=== PATIENT | female | born 1940 | race Caucasian/White ===

== ENCOUNTER 2016-10-30 14:11 | Inpatient (IN) | payer OTHER ==
[~2016-10-30] VITALS: Ht 154.9 cm; Wt 54.9 kg
[~2016-10-30 14:11] MED LIST: ALBU0.5N2 INH; ALBUAER19 INH; ALEN70TA4 PO; ASPI1TAB83 PO; CALC-20 PO; CLC100X PO; FURO-85 PO; LISI20TA3 PO; MONT1TAB3 PO; MULTCAP94; OXGN; TIOTCAP INH; VERA240C2 PO
[2016-10-30] MEDS ORDERED: VNTHFA/IN INH (14:34)
[2016-10-30] MEDS ORDERED: SPRIN/30 INH (14:34)
[2016-10-30] MEDS ORDERED: ALBINS/ INH (14:34)
[2016-10-30] MEDS ORDERED: SIMV-150 PO (14:34)
[2016-10-30] MEDS ORDERED: ALBUTEROL 0.083% NEBU SOLN 3 ML VIAL INH STA ×2 (14:39→15:41)
[2016-10-30] MEDS ORDERED: LEVAQUIN 500MG / 100ML D5W IV ONE (14:45)
[2016-10-30] MEDS ORDERED: METHYLPREDNISOLONE IV 40 MG in SYRINGE 0 ML IV SCH (14:45)
[2016-10-30 14:59] LABS: BASO % 0.1 %; BASO ABS # 0.01 K/uL (0-0.2); COMPLETE YES; HEMATOCRIT 37.8 % (37-47); IG% 0.5 %; LYMPH % 5.8 %; LYMPH ABS # 0.72 K/uL (1.2-3.4); MEAN CELL VOLUME 85.1 fL (80-100); MEAN CORPUSCULAR HEMOGLOBIN 27.7 pg (25-34); MEAN CORPUSCULAR HGB CONC 32.5 g/dl (32-36); MEAN PLATELET VOLUME 9.7 fL (7.4-10.4); MONO % 1.2 %; NEUT % 92.4 %; PLATELET COUNT 353 K/uL (130-400); RED BLOOD COUNT 4.44 M/uL (4.2-5.4); WHITE BLOOD COUNT 12.39 K/uL (4.8-10.8)
--- NOTE | 2016-10-30 15:14 | DIAGNOSTIC IMAGING REPORT ---
CHEST ONE VIEW PORTABLE CLINICAL HISTORY: Chest pain, cough and shortness of breath. COMPARISON STUDY: Chest radiograph June 18, 2016. FINDINGS: There may be underlying emphysema. No pneumothorax or pleural effusion is present. Bilateral healed rib fractures are noted. Lower lung interstitial thickening is unchanged. There is no evidence of pulmonary edema. There is no consolidation. Cardiomediastinal silhouette is stable. A lobular density along left hemidiaphragm is unchanged since earlier exams and may reflect a Bochdalek hernia. IMPRESSION: 1. No acute findings. No change in appearance of the chest. 2. Suspected emphysema. Electronically signed by: Davis Ivey M.D. 10/30/2016 3:12 PM Dictated Date/Time: 10/30/2016 3:10 PM
[2016-10-30 15:16] LABS: BLOOD UREA NITROGEN 28 mg/dl (7-18); CALCIUM 9.4 mg/dl (8.5-10.1); CARBON DIOXIDE 28 mmol/L (21-32); CHLORIDE 101 mmol/L (98-107); CREATININE 0.86 mg/dl (0.60-1.20); GLUCOSE 144 mg/dl (70-99); POTASSIUM 3.7 mmol/L (3.5-5.1); SODIUM 141 mmol/L (136-145)
[2016-10-30 15:21] LABS: CKMB/CK RATIO 2.1 (0-3.0)
[2016-10-30] MEDS ORDERED: PRD20 PO (17:29)
[2016-10-30] MEDS ORDERED: LSN40 PO (17:29)
[2016-10-30] MEDS ORDERED: VERA1CAP6 PO (17:29)
[2016-10-30] MEDS ORDERED: IBUP1CAP9 PO (17:29)
[2016-10-30] MEDS ORDERED: MULTTAB58 PO (17:29)
[2016-10-30] MEDS ORDERED: SYMIN160 INH (17:29)
[2016-10-30] MEDS ORDERED: AMX875 INH (17:29)
[2016-10-30] MEDS ORDERED: DOCU-94 PO (17:29)
[2016-10-30] MEDS ORDERED: MELO15TA10 PO (17:29)
[2016-10-30] MEDS ORDERED: LEVALBUTEROL/IPRATROPIUM NEB INH PRN (17:30)
[2016-10-30] MEDS ORDERED: DOCUSATE SODIUM 100 MG CAP PO PRN (17:30)
[2016-10-30] MEDS ORDERED: ACETAMINOPHEN 325 MG TAB PO PRN (17:30)
[2016-10-30] MEDS ORDERED: MELOXICAM 7.5 MG TAB PO PRN (17:30)
[2016-10-30] MEDS ORDERED: ONDANSETRON INJ 2 MG/ML 2 ML VIAL IV PRN (17:30)
--- NOTE | 2016-10-30 18:14 | History and Physical ---
History & Physical Date & Time of Service: Oct 30, 2016 at 17:30 Chief Complaint: Coughing,Sob Primary Care Physician: Manav Colvin M.D. History of Present Illness Source: patient, clinic records This is a 75 y/o female with PMH of COPD, asthma, on chronic oxygen 2 liters PRN , HTN, dyslipidemia, and other problems listed below who presents to the ED with shortness of breath. Patient states she became ill with a "cold" with nasal congestion and cough productive of green sputum 8 days ago. She reports associated increase in baseline shortness of breath. Typically she is only dyspneic on exertion if she ambulates quickly, but today she was SOB at rest and her daughter states she was turning rogers in color. Patient has been taking amoxicillin and prednisone rescue kit for 7 days without improvement. She is using her rescue inhaler/ neb more than usual, at least every 4 hours. She is also using her oxygen 2 liters PRN more than usual. In the ER she was hypoxic to 79% on RA and is now saturating in mid 90s on 2 liters NC. She was treated with 2 neb treatments, IV steroids, and Levaquin in ER with partial improvement. She has not been eating as well. She has ongoing foot cramps and states she had a circulation test for that yesterday. She denies fevers, chills , sinus pressure, sore throat, chest pain, N/V/D, urinary changes, calf pain, edema. She lives with her daughter who recently had bronchitis. No recent hospitalization or travel. Past Medical/Surgical History Medical Problems: (1) Asthma Status: Chronic (2) COPD (chronic obstructive pulmonary disease) Status: Chronic (3) Hypertension Status: Chronic (4) Hypoxemia requiring supplemental oxygen Status: Chronic (5) Osteoporosis Status: Chronic (6) Pulmonary nodules Status: Chronic (7) Thyroid nodule Status: Chronic Surgical Problems: (1) History of carpal tunnel surgery Status: Chronic (2) History of cataract surgery Status: Chronic (3) S/P hysterectomy Status: Chronic Family History FH: HTN (hypertension) FH: diabetes mellitus FH: heart disease Social History Smoking Status: Former Smoker (quit 10 yeras ago. prior 1.5 ppd x 40 years) Alcohol Use: occasionally (occasional glass of wine) Drug Use: none Marital Status: Housing status: lives with family (with daughter) Occupational Status: retired Allergies Coded Allergies: Doxycycline (Verified Adverse Reaction, Intermediate, NAUSEA, 06/18/16) Atorvastatin (Verified Adverse Reaction, Unknown, MYALGIA, 06/18/16) Sulfa Antibiotics (Verified Adverse Reaction, Unknown, DIZZY,NAUSEA, ) Home Medications Scheduled Alendronate Sodium (Fosamax), 70 MG PO WK Amoxicillin (Amoxicillin), 875 MG INH BID Aspirin (Aspirin), 81 MG PO HS Budesonide/Formoterol Fumarate (Symbicort 160/4.5 Inhaler), 2 PUFFS INH BID Calcium Carbonate-Vitamin D (Calcium 600 + D), 2 TAB PO DAILY Lisinopril (Lisinopril), 40 MG PO DAILY Montelukast Sodium (Singulair), 10 MG PO DAILY Multiple Vitamin (Multivitamin), 1 TAB PO DAILY Oxygen (Oxygen), 2 LITER NA PRN Prednisone (Prednisone), MG PO UD Simvastatin (Simvastatin), 10 MG PO QPM Tiotropium [place] (Spiriva Handihaler), 1 CAP INH DAILY Verapamil (Verelan Pm), 200 MG PO QAM Scheduled PRN Albuterol Hfa (Ventolin Hfa), 2 PUFFS INH QID PRN for Shortness of Breath Albuterol Sulf (Proventil 0.083% 2.5MG/3ML), 2.5 MG INH Q4H PRN for SOB/Wheezing Docusate Sodium (Colace), 100 MG PO DAILY PRN for Constipation Furosemide (Lasix), 20 MG PO DAILY PRN for edema Ibuprofen (Ibuprofen), 200 MG PO Q4 PRN for Pain Meloxicam (Mobic), 1 TAB PO DAILY PRN for Pain Miscellaneous Medications Multiple Vitamins W/ Minerals (Ocuvite Adult 50+) Review of Systems Ten point ROS performed with pertinent positives and negatives noted in HPI. Physical Exam Vital Signs Date Time Temp Pulse Resp B/P Pulse Ox O2 Delivery O2 Flow Rate FiO2 10/30/16 15:30 85 16 142/88 97 Room Air 10/30/16 15:28 88 10/30/16 14:14 36.9 103 32 164/84 79 Nasal Cannula 3.0 10/30/16 14:14 79 Nasal Cannula 3.0 General Appearance: + pertinent finding (pleasant alert 75 year old female, sitting up in bed, mildly increased work of breathing, daughter and son-in-law at bedside) Head: normocephalic, atraumatic Eyes: normal inspection, PERRL, EOMI ENT: hearing grossly normal, TMs normal, pharynx normal, + pertinent finding ( no sinus tenderness) Neck: supple, trachea midline Respiratory/Chest: + decreased breath sounds, + wheezing (moderate expiratory wheezing), + pertinent finding (mildy increased work of breathing with mild accessory muscle use. able to speak in sentences. resp rate 18. ) Cardiovascular: regular rate, rhythm, no murmur Abdomen/GI: normal bowel sounds, non tender, soft Extremities/Musculoskelatal: no calf tenderness, no pedal edema Neurologic/Psych: alert, normal mood/affect, oriented x 3, + pertinent finding (grossly nonfocal) Skin: normal color, no rash Diagnostics Laboratory Results Results Past 24 Hours Test 10/30/16 14:49 Range/Units White Blood Count 12.39 4.8-10.8 K/uL Red Blood Count 4.44 4.2-5.4 M/uL Hemoglobin 12.3 12.0-16.0 g/dL Hematocrit 37.8 37-47 % Mean Corpuscular Volume 85.1 80-100 fL Mean Corpuscular Hemoglobin 27.7 25-34 pg Mean Corpuscular Hemoglobin Concent 32.5 32-36 g/dl Platelet Count 353 130-400 K/uL Mean Platelet Volume 9.7 7.4-10.4 fL Neutrophils (%) (Auto) 92.4 % Lymphocytes (%) (Auto) 5.8 % Monocytes (%) (Auto) 1.2 % Eosinophils (%) (Auto) 0.0 % Basophils (%) (Auto) 0.1 % Neutrophils # (Auto) 11.45 1.4-6.5 K/uL Lymphocytes # (Auto) 0.72 1.2-3.4 K/uL Monocytes # (Auto) 0.15 0.11-0.59 K/uL Eosinophils # (Auto) 0.00 0-0.5 K/uL Basophils # (Auto) 0.01 0-0.2 K/uL RDW Standard Deviation 51.9 36.4-46.3 fL RDW Coefficient of Variation 16.5 11.5-14.5 % Immature Granulocyte % (Auto) 0.5 % Immature Granulocyte # (Auto) 0.06 0.00-0.02 K/uL Sodium Level 141 136-145 mmol/L Potassium Level 3.7 3.5-5.1 mmol/L Chloride Level 101 98-107 mmol/L Carbon Dioxide Level 28 21-32 mmol/L Anion Gap 12.0 3-11 mmol/L Blood Urea Nitrogen 28 7-18 mg/dl Creatinine 0.86 0.60-1.20 mg/dl Est Creatinine Clear Calc Drug Dose 66.6 ml/min Estimated GFR () 76.6 Estimated GFR (Non- 66.1 BUN/Creatinine Ratio 33.0 10-20 Random Glucose 144 70-99 mg/dl Calcium Level 9.4 8.5-10.1 mg/dl Total Creatine Kinase 119 26-192 U/L Creatine Kinase MB 2.5 0.5-3.6 ng/ml Creatine Kinase MB Ratio 2.1 0-3.0 Troponin I < 0.015 0-0.045 ng/ml Diagnostic Radiology CHEST ONE VIEW PORTABLE CLINICAL HISTORY: Chest pain, cough and shortness of breath. COMPARISON STUDY: Chest radiograph June 18, 2016. FINDINGS: There may be underlying emphysema. No pneumothorax or pleural effusion is present. Bilateral healed rib fractures are noted. Lower lung interstitial thickening is unchanged. There is no evidence of pulmonary edema. There is no consolidation. Cardiomediastinal silhouette is stable. A lobular density along left hemidiaphragm is unchanged since earlier exams and may reflect a Bochdalek hernia. IMPRESSION: 1. No acute findings. No change in appearance of the chest. 2. Suspected emphysema. EKG NSR, possible left atrial enlargement, possible old septal infarct, no significant change when compared to prior EKG as per cardiology read Impression Assessment and Plan COPD EXACERBATION with HYPOXIA Admit to telemetry Failed outpatient treatment with amoxicillin and PO prednisone x 7 days (rescue kit from veterinary x ray operator)H Hypoxic to 79% on RA in ER; now saturating 95% on 2 liters NC; only uses 2 liters PRN at home No infiltrate on CXR Treated with nebs x2, IV Solu-Medrol, and Levaquin in ER Check influenza PCR, sputum culture Continue empiric Levaquin IV Solu-Medrol 40 mg TID Xopenex-Atrovent QIDR and PRN Continue Symbicort, Spiriva, and Singulair Supplemental O2 pr protocol Follows with Rhoda ROBLEDO for pulmonology HYPERTENSION BP mildly elevated in ER Continue lisinopril and verapamil ER (dose decreased from 200 mg -> 180 mg as we do not have the 200 mg on formulary and her family is unable to bring it from home at this point PULMONARY NODULES Continue outpatient follow up DYSLIPIDEMIA Continue statin CODE STATUS Per my discussion with the patient, DNR in case of cardiac arrest. However, if she were conscious and developed worsening respiratory status she states it would be acceptable to intubate. DISPOSITION Lives with daughter Follows with Dr. Colvin for primary care Patient seen in collaboration with Dr. Estrada. Please see her addendum. I have seen, examined and discussed this patient with Margaret Torres and I agree with the above note. Patient presents with worsening SOB, productive cough and hypoxia despite taking rescue kits of prednisone and amoxicillin. Vitals reviewed. PE: General- awake; alert; NAD Eyes- EOMI; no scleral icterus Neck- no stridor; trachea midline Lungs- end expiratory wheezes/rubs; good air movement Heart- RRR; no m/r/g Abdomen- soft; NTND; nBS Back- no gross abnormalities Extremities- no c/c/e; no deformity Neuro- no focal deficits Skin- no appreciable rash or bruise Labs, imaging and EKG reviewed. COPD exacerbation: Continue methylprednisolone, levofloxacin, nebulizers. Continue home inhalers. CXR negative. Sputum cx and flu swab pending. HTN: Continue verapamil and lisinopril. VTE Prophylaxis VTE Risk Assessment Done? Y/N: Yes Risk Level: Moderate
[2016-10-30 19:45] VITALS: BP 180/100; PULSE 93; TEMP 37; O2SAT 94
--- NOTE | 2016-10-30 19:46 | EMERGENCY ROOM VISIT NOTE ---
History Report prepared by Rafael: Chacha Chen Under the Supervision of: Dr. Puneet Avendano D.O. First contact with patient: 14:33 Chief Complaint: COUGH Stated Complaint: COUGHING,SOB Nursing Triage Summary: pt c/o trouble breathing taking meds for cold and asthma sx. not helping. pt daughter reports pt turned rogers today. daughter who lives with pt recently dx with bronchitis History of Present Illness The patient is a 75 year old female who presents to the Emergency Room with complaints of a persistent cough starting 8 days ago. The cough is productive of a green sputum. She went to see a heel finisher who gave her amoxicillin and prednisone. These relieved the symptoms briefly, but the next day she was coughing again. She wears 2 L of oxygen as needed, but it is providing her no relief. She has been having trouble breathing. She denies any fever or hemoptysis. She lives with her daughter who has recently had bronchitis. She states the symptoms are similar. She has a history of asthma and COPD. She denies any history of blood clots, cancer, or heart failure. No recorded fevers above 100.4. She denies chest pain. Source of History: patient Onset: 8 days ago Position: other (global) Quality: other (productive cough) Timing: other (persistent) Associated Symptoms: + SOB, No fevers Note: Pt denies hemoptysis. Review of Systems See HPI for pertinent positives & negatives. A total of 10 systems reviewed and were otherwise negative. Past Medical & Surgical Medical Problems: (1) Asthma (2) COPD (chronic obstructive pulmonary disease) (3) COPD exacerbation (4) Hypertension (5) Hypoxemia requiring supplemental oxygen (6) Hypoxia (7) Osteoporosis (8) Pulmonary nodules (9) Thyroid nodule Surgical Problems: (1) History of carpal tunnel surgery (2) History of cataract surgery (3) S/P hysterectomy Family History FH: HTN (hypertension) FH: diabetes mellitus FH: heart disease Social History Smoking Status: Never Smoker Alcohol Use: none Drug Use: none Marital Status: Housing Status: lives alone Occupation Status: retired Current/Historical Medications Scheduled Alendronate Sodium (Fosamax), 70 MG PO WK Amoxicillin (Amoxicillin), 875 MG INH BID Aspirin (Aspirin), 81 MG PO HS Budesonide/Formoterol Fumarate (Symbicort 160/4.5 Inhaler), 2 PUFFS INH BID Calcium Carbonate-Vitamin D (Calcium 600 + D), 2 TAB PO DAILY Lisinopril (Lisinopril), 40 MG PO DAILY Montelukast Sodium (Singulair), 10 MG PO DAILY Multiple Vitamin (Multivitamin), 1 TAB PO DAILY Oxygen (Oxygen), 2 LITER NA PRN Prednisone (Prednisone), MG PO UD Simvastatin (Simvastatin), 10 MG PO QPM Tiotropium [place] (Spiriva Handihaler), 1 CAP INH DAILY Verapamil (Verelan Pm), 200 MG PO QAM Scheduled PRN Albuterol Hfa (Ventolin Hfa), 2 PUFFS INH QID PRN for Shortness of Breath Albuterol Sulf (Proventil 0.083% 2.5MG/3ML), 2.5 MG INH Q4H PRN for SOB/Wheezing Docusate Sodium (Colace), 100 MG PO DAILY PRN for Constipation Furosemide (Lasix), 20 MG PO DAILY PRN for edema Ibuprofen (Ibuprofen), 200 MG PO Q4 PRN for Pain Meloxicam (Mobic), 1 TAB PO DAILY PRN for Pain Miscellaneous Medications Multiple Vitamins W/ Minerals (Ocuvite Adult 50+) Allergies Coded Allergies: Doxycycline (Verified Adverse Reaction, Intermediate, NAUSEA, 06/18/16) Atorvastatin (Verified Adverse Reaction, Unknown, MYALGIA, 06/18/16) Sulfa Antibiotics (Verified Adverse Reaction, Unknown, DIZZY,NAUSEA, ) Physical Exam Vital Signs Date Time Temp Pulse Resp B/P Pulse Ox O2 Delivery O2 Flow Rate FiO2 10/30/16 15:30 85 16 142/88 97 Room Air 10/30/16 15:28 88 10/30/16 14:14 36.9 103 32 164/84 79 Nasal Cannula 3.0 10/30/16 14:14 79 Nasal Cannula 3.0 Physical Exam GENERAL: sitting up in bed, chronically ill-appearing, in mild distress, tachypneic. On nasal cannula. EYE EXAM: normal conjunctiva OROPHARYNX: no exudate, no erythema, lips, buccal mucosa, and tongue normal and mucous membranes are moist NECK: supple, no nuchal rigidity, no adenopathy, non-tender LUNGS: Mild diffuse wheezes bilaterally, poor air movement. HEART: no murmurs, S1 normal and S2 normal ABDOMEN: abdomen soft, non-tender, normo-active bowel sounds, no masses, no rebound or guarding. BACK: Back is symmetrical on inspection and there is no deformity, no midline tenderness, no CVA tenderness. SKIN: no rashes and no bruising UPPER EXTREMITIES: upper extremities are grossly normal. LOWER EXTREMITIES: No pitting edema. Calves are equal bilaterally. NEURO EXAM: Normal sensorium, cranial nerves II-XII grossly intact, normal speech, no gross weakness of arms, no gross weakness of legs. Medical Decision & Procedures ER Provider Diagnostic Interpretation: Xray results per the radiologist and my interpretation. CHEST ONE VIEW PORTABLE CLINICAL HISTORY: Chest pain, cough and shortness of breath. COMPARISON STUDY: Chest radiograph June 18, 2016. FINDINGS: There may be underlying emphysema. No pneumothorax or pleural effusion is present. Bilateral healed rib fractures are noted. Lower lung interstitial thickening is unchanged. There is no evidence of pulmonary edema. There is no consolidation. Cardiomediastinal silhouette is stable. A lobular density along left hemidiaphragm is unchanged since earlier exams and may reflect a Bochdalek hernia. IMPRESSION: 1. No acute findings. No change in appearance of the chest. 2. Suspected emphysema. Electronically signed by: Davis Ivey M.D. 10/30/2016 3:12 PM Dictated Date/Time: 10/30/2016 3:10 PM Laboratory Results 10/30/16 14:49 Red Blood Count 4.44, Mean Corpuscular Volume 85.1, Mean Corpuscular Hemoglobin 27.7, Mean Corpuscular Hemoglobin Concent 32.5, Mean Platelet Volume 9.7, Neutrophils (%) (Auto) 92.4, Lymphocytes (%) (Auto) 5.8, Monocytes (%) (Auto) 1.2, Eosinophils (%) (Auto) 0.0, Basophils (%) (Auto) 0.1, Neutrophils # (Auto) 11.45, Lymphocytes # (Auto) 0.72, Monocytes # (Auto) 0.15, Eosinophils # (Auto) 0.00, Basophils # (Auto) 0.01 10/30/16 14:49 Test 10/30/16 14:49 White Blood Count 12.39 K/uL (4.8-10.8) Red Blood Count 4.44 M/uL (4.2-5.4) Hemoglobin 12.3 g/dL (12.0-16.0) Hematocrit 37.8 % (37-47) Mean Corpuscular Volume 85.1 fL (80-100) Mean Corpuscular Hemoglobin 27.7 pg (25-34) Mean Corpuscular Hemoglobin Concent 32.5 g/dl (32-36) Platelet Count 353 K/uL (130-400) Mean Platelet Volume 9.7 fL (7.4-10.4) Neutrophils (%) (Auto) 92.4 % Lymphocytes (%) (Auto) 5.8 % Monocytes (%) (Auto) 1.2 % Eosinophils (%) (Auto) 0.0 % Basophils (%) (Auto) 0.1 % Neutrophils # (Auto) 11.45 K/uL (1.4-6.5) Lymphocytes # (Auto) 0.72 K/uL (1.2-3.4) Monocytes # (Auto) 0.15 K/uL (0.11-0.59) Eosinophils # (Auto) 0.00 K/uL (0-0.5) Basophils # (Auto) 0.01 K/uL (0-0.2) RDW Standard Deviation 51.9 fL (36.4-46.3) RDW Coefficient of Variation 16.5 % (11.5-14.5) Immature Granulocyte % (Auto) 0.5 % Immature Granulocyte # (Auto) 0.06 K/uL (0.00-0.02) Anion Gap 12.0 mmol/L (3-11) Est Creatinine Clear Calc Drug Dose 66.6 ml/min Estimated GFR () 76.6 Estimated GFR (Non- 66.1 BUN/Creatinine Ratio 33.0 (10-20) Calcium Level 9.4 mg/dl (8.5-10.1) Total Creatine Kinase 119 U/L (26-192) Creatine Kinase MB 2.5 ng/ml (0.5-3.6) Creatine Kinase MB Ratio 2.1 (0-3.0) Troponin I < 0.015 ng/ml (0-0.045) Laboratory results per my review. Medications Administered Medications (Trade) Dose Ordered Sig/Jax Route Start Time Stop Time Status Last Admin Dose Admin Albuterol Sulfate 2.5 mg 2.5 mg NOW STAT INH 10/30/16 14:39 10/30/16 14:41 DC 10/30/16 15:05 2.5 MG Methylprednisolone Sodium Succinate/ Syringe (Solu-Medrol IV/ Syringe) 0.64 ml @ 1.5 mls/min NOW IV 10/30/16 14:45 10/30/16 18:50 DC 10/30/16 15:10 1.5 MLS/MIN Levofloxacin (Levaquin / D5W) 500 mg NOW ONCE IV 10/30/16 14:45 10/30/16 14:46 DC 10/30/16 15:05 500 MG Albuterol Sulfate (Ventolin 0.083% 2.5MG/3ML Neb) 2.5 mg NOW STAT INH 10/30/16 15:41 10/30/16 15:42 DC 10/30/16 16:04 2.5 MG ECG Indication: SOB/dyspnea Rate (beats per minute): 83 Rhythm: sinus rhythm Findings: Q waves (Septal), no ectopy, other (normal axis) Comparison ECG Date: 18-Jun-2016 Change: no significant change ED Course ED COURSE: Vital signs were reviewed and showed hypoxia. The patients medical record was reviewed The above diagnostic studies were performed and reviewed. ED treatments and interventions as stated above. 1435: The patient was evaluated in room C2. A complete history and physical examination was performed. 1439: Albuterol Sulfate 2.5 mg INH. 1445: Levofloxacin 500 mg IV, Methylprednisolone Sodium Succinate 40 mg/Syringe 0.64 ml @ 1.5 mls/min IV. 1541: Albuterol Sulfate 2.5 mg INH. 1605: I reevaluated the patient. She is feeling a little bit better. She is still short of breath. 1618: I discussed the patient's case with VENKAT Cornelius. She will be evaluated for further management. 1642: Upon reevaluation, the patient is resting comfortably.I discussed my findings with the patient and she understands and agrees with the treatment plan. Based on the patients age, coexisting illnesses, exam and lab findings the decision to treat as an inpatient was made. The patient remained stable while under my care. The patient will be evaluated for further management. Medical Decision Differential diagnoses includes but is not limited to pneumonia, bronchitis, COPD/Asthma exacerbation, pneumothorax, pulmonary embolism, congestive heart failure, acute coronary syndrome Patient is a 75-year-old female who presents the ER for shortness of breath. Upon arrival she is hypoxic with pulse ox in the high 70s. She notes that she wears 2 L nasal cannula intermittently at home. She has been followed up with her heel finisher and has been on steroids and antibiotics with no improvement of her symptoms. She has been significantly short of breath worsening over the past 24-48 hours. She is currently on 5 L nasal cannula with pulse ox in the mid 90s. Chest x-ray was unremarkable. She is given 2 nebs along with steroids and had improvement of her symptoms. O2 was titrated down to 3 L. She is significantly short of breath with conversation initially and this improved. She was given a dose of Levaquin. With her symptoms which have been progressing worsening while on steroids and antibiotics and now requiring persistent oxygen I thought it was prudent to admit/observe her overnight. She is evaluated by internal medicine they agreed. Labs showed a mild leukocytosis which could be secondary to an infectious process versus steroids. BMP along with troponin were negative. She is admitted to internal medicine for further workup. Consults Time Called: 1611 Consulting Physician: VENKAT Cornelius Returned Call: [phone] I discussed the patient's case with her. She will be evaluated for further management. Impression Primary Impression: Bronchitis Additional Impressions: Hypoxia COPD (chronic obstructive pulmonary disease) Asthma exacerbation Scribe Attestation The scribe's documentation has been prepared under my direction and personally reviewed by me in its entirety. I confirm that the note above accurately reflects all work, treatment, procedures, and medical decision making performed by me. Departure Information Dispostion Being Evaluated By Hospitalist Manav Rice M.D. (PCP) Patient Instructions My [facility] Problem Qualifiers Additional Impressions: COPD (chronic obstructive pulmonary disease) COPD type: COPD with acute exacerbation Qualified Codes: J44.1 - Chronic obstructive pulmonary disease with (acute) exacerbation
[2016-10-30] MEDS: LEVALBUTEROL 1.25MG/0.5ML NEB INH SCH (19:52)
[2016-10-30] MEDS: IPRATROPIUM BROMIDE NEB SOLN 0.02% 2.5 ML VIAL INH SCH (19:52)
[2016-10-30 19:53] VITALS: PULSE 96; O2SAT 90
[2016-10-30 20:00] VITALS: O2SAT 94; Ht 154.9 cm; Wt 54.9 kg
[2016-10-30] MEDS: BUDESONIDE/FORMOTEROL FUMARATE 160/4.5 60 PUFFS/INHALER INH SCH (20:43)
[2016-10-30] MEDS: SIMVASTATIN 10 MG TAB PO SCH (20:44)
[2016-10-30] MEDS: MONTELUKAST SOD 10 MG TAB PO SCH (20:44)
[2016-10-30] MEDS: ASPIRIN 81 MG ECTAB PO SCH (20:44)
[2016-10-30 20:53] VITALS: BP 195/95; PULSE 109
[2016-10-30] MEDS ORDERED: LEVALBUTEROL/IPRATROPIUM NEB INH SCH (21:00)
[2016-10-30] MEDS ORDERED: VERAPAMIL HCL 180 MG TABCR PO ONE (21:00)
[2016-10-30 21:51] LABS: INFLUENZA A PCR Neg for Influ A (NEG); INFLUENZA B PCR Neg for Influ B (NEG)
[2016-10-30] MEDS: METHYLPREDNISOLONE IV 40 MG in SYRINGE 0 ML IV SCH (22:56)
[2016-10-30 23:12] VITALS: BP 173/90; PULSE 84; TEMP 37.1; O2SAT 92
[2016-10-31] VITALS (10 sets, daily range): BP systolic 152–173; BP diastolic 78–94; PULSE 72–103; TEMP 36.7–37; O2SAT 90–99
[2016-10-31] MEDS: LEVALBUTEROL 1.25MG/0.5ML NEB INH SCH ×5 (02:22→23:09)
[2016-10-31] MEDS: IPRATROPIUM BROMIDE NEB SOLN 0.02% 2.5 ML VIAL INH SCH ×5 (02:22→23:09)
[2016-10-31 07:11] LABS: HEMATOCRIT 36.7 % (37-47); MEAN CELL VOLUME 85.3 fL (80-100); MEAN CORPUSCULAR HEMOGLOBIN 27.4 pg (25-34); MEAN CORPUSCULAR HGB CONC 32.2 g/dl (32-36); MEAN PLATELET VOLUME 9.7 fL (7.4-10.4); PLATELET COUNT 337 K/uL (130-400); WHITE BLOOD COUNT 6.11 K/uL (4.8-10.8)
[2016-10-31 07:19] LABS: PARTIAL THROMBOPLASTIN RATIO 0.9; PROTHROMBIN TIME (PATIENT) 10.6 SECONDS (9.0-12.0)
[2016-10-31 07:40] LABS: BUN/CREATININE RATIO 28.8 (10-20); CALCIUM 8.9 mg/dl (8.5-10.1); CREATININE 0.68 mg/dl (0.60-1.20); POTASSIUM 3.7 mmol/L (3.5-5.1)
[2016-10-31] MEDS: BUDESONIDE/FORMOTEROL FUMARATE 160/4.5 60 PUFFS/INHALER INH SCH ×2 (08:08→20:39)
[2016-10-31] MEDS: METHYLPREDNISOLONE IV 40 MG in SYRINGE 0 ML IV SCH ×3 (08:08→23:39)
[2016-10-31] MEDS: MULTIVITAMIN TAB PO SCH (08:09)
[2016-10-31] MEDS: TIOTROPIUM BROMIDE 5 PUFF/90 MCG INH INH SCH (08:09)
[2016-10-31] MEDS: VERAPAMIL HCL 180 MG TABCR PO SCH (08:09)
[2016-10-31] MEDS: CALCIUM 600MG + VIT D 400 IU TAB PO SCH (08:09)
[2016-10-31] MEDS: LISINOPRIL 40 MG TAB PO SCH (08:09)
[2016-10-31] MEDS: ENOXAPARIN 40 MG/0.4 ML SYR SC SCH (08:36)
[2016-10-31] MEDS: LEVOFLOXACIN / D5W 500 MG in PREMIXED IN D5W 100 ML IV SCH (16:08)
--- NOTE | 2016-10-31 17:55 | Progress Note ---
Medicine Progress Note Date & Time of Visit: Oct 31, 2016 at 17:52. Subjective resting in bed, in good spirits states her breathing is somewhat improved compared to yesterday has dry cough report sore throat denies chest, palpitations, dizziness no other symptoms Objective Last 8 Hrs Date Time Temp Pulse Resp B/P Pulse Ox O2 Delivery O2 Flow Rate FiO2 10/31/16 16:15 Nasal Cannula 2.0 10/31/16 14:58 36.7 100 16 155/84 99 Room Air 10/31/16 14:37 95 18 91 Nasal Cannula 2.0 10/31/16 12:15 Nasal Cannula 2.0 10/31/16 11:48 36.9 100 16 171/82 96 Nasal Cannula 2.0 Physical Exam: General- oriented x 3, not in distress, speaks in sentences with very mild effort Head- atraumatic Eyes- EOMI, anicteric ENT- (+) oral thrush Neck- supple, no JVD, no adenopathy Lungs- scattered mild expiratory wheeze bilaterally good air entry Heart- normal rate, regular rhythm; no murmurs Abdomen- normal bowel sounds, soft, nontender Extremities- no pretibial edema, no calf tenderness; peripheral pulses intact Neuro- alert, oriented x 3;no gross deficits Skin- warm & dry Laboratory Results: Last 24 Hours Test 10/30/16 19:30 10/31/16 06:49 Influenza Type A (RT-PCR) Neg for Influ A Influenza Type B (RT-PCR) Neg for Influ B White Blood Count 6.11 K/uL Red Blood Count 4.30 M/uL Hemoglobin 11.8 g/dL Hematocrit 36.7 % Mean Corpuscular Volume 85.3 fL Mean Corpuscular Hemoglobin 27.4 pg Mean Corpuscular Hemoglobin Concent 32.2 g/dl RDW Standard Deviation 51.2 fL RDW Coefficient of Variation 16.3 % Platelet Count 337 K/uL Mean Platelet Volume 9.7 fL Prothrombin Time 10.6 SECONDS Prothromb Time International Ratio 1.0 Activated Partial Thromboplast Time 23.7 SECONDS Partial Thromboplastin Ratio 0.9 Sodium Level 141 mmol/L Potassium Level 3.7 mmol/L Chloride Level 103 mmol/L Carbon Dioxide Level 27 mmol/L Anion Gap 11.0 mmol/L Blood Urea Nitrogen 20 mg/dl Creatinine 0.68 mg/dl Est Creatinine Clear Calc Drug Dose 53.9 ml/min Estimated GFR () 99.2 Estimated GFR (Non- 85.6 BUN/Creatinine Ratio 28.8 Random Glucose 134 mg/dl Calcium Level 8.9 mg/dl Date/Time Source Procedure Growth Status 10/30/16 21:00 Sputum Expectorated Sputum Gram Stain - Final Resulted 10/30/16 21:00 Sputum Expectorated Sputum Sputum Culture - Preliminary LIGHT NORMAL PITA Present, Final Rep... 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 However, if she were conscious and developed worsening respiratory status she states it would be acceptable to intubate. DISPOSITION Lives with daughter Follows with Dr. Colvin for primary care Current Inpatient Medications: Current Inpatient Medications Medications (Trade) Dose Ordered Sig/Jax Route Start Time Stop Time Status Last Admin Dose Admin Lactated Ringer's (Lr 1000ml) 500 ml @ 15 mls/hr Q24H IV 11/02/16 06:00 11/02/16 18:00 Enoxaparin Sodium (Lovenox Inj) 40 mg DAILY@0900 SC 10/31/16 09:00 11/30/16 08:59 10/31/16 08:36 40 MG Acetaminophen (Tylenol Tab) 650 mg Q4H PRN PO 10/30/16 17:30 11/29/16 17:29 Ondansetron HCl 4 mg 4 mg Q6H PRN IV 10/30/16 17:30 11/29/16 17:29 Methylprednisolone Sodium Succinate 40 mg/Syringe 0.64 ml @ 1.5 mls/min Q8H IV 10/31/16 00:00 11/30/16 00:00 10/31/16 16:08 1.5 MLS/MIN Levofloxacin/Prmx (Levaquin / D5W/ Premixed D5W) 100 ml @ 100 mls/hr Q24H IV 10/31/16 16:00 11/06/16 15:59 10/31/16 16:08 100 MLS/HR Alendronate Sodium (Fosamax Tab) 70 mg Leroy@0600 PO 11/01/16 06:00 12/01/16 05:59 Aspirin (Ecotrin Tab) 81 mg HS PO 10/30/16 21:00 11/29/16 20:59 10/30/16 20:44 81 MG Budesonide/ Formoterol Fumarate (Symbicort 160/ 4.5 Inh) 2 puffs BID INH 10/30/16 21:00 11/29/16 20:59 10/31/16 08:08 2 PUFFS Docusate Sodium (coLACE CAP) 100 mg DAILY PRN PO 10/30/16 17:30 11/29/16 17:29 Lisinopril (Zestril Tab) 40 mg DAILY PO 10/31/16 09:00 11/30/16 08:59 10/31/16 08:09 40 MG Montelukast Sodium (Singulair Tab) 10 mg QPM PO 10/30/16 21:00 11/29/16 20:59 10/30/16 20:44 10 MG Multivitamins (Multivitamin Tab) 1 tab DAILY PO 10/31/16 09:00 11/30/16 08:59 10/31/16 08:09 1 TAB Simvastatin (Zocor Tab) 10 mg QPM PO 10/30/16 21:00 11/29/16 20:59 10/30/16 20:44 10 MG Tiotropium [place] (Spiriva Handihaler Inhaler) 30 puff DAILY INH 10/31/16 09:00 11/30/16 08:59 10/31/16 08:09 5 PUFF Calcium/Vitamin D (Caltrate Plus Tab) 2 tab DAILY PO 10/31/16 09:00 11/30/16 08:59 10/31/16 08:09 2 TAB Verapamil HCl (Calan-Sr Tab) 180 mg QAM PO 10/31/16 09:00 11/30/16 08:59 10/31/16 08:09 180 MG Ipratropium [place] (Atrovent 0.02% 0.5MG/2.5ML Neb) 0.5 mg Q6R INH 10/30/16 21:00 11/29/16 20:59 10/31/16 14:37 0.5 MG Levalbuterol (Xopenex 1.25MG/ 0.5ML Neb) 1.25 mg Q6R INH 10/30/16 21:00 11/29/16 20:59 10/31/16 14:37 1.25 MG
[2016-10-31] MEDS: NYSTATIN SUSP 500,000 U/5 ML UDC PO SCH ×2 (18:23→20:40)
[2016-10-31] MEDS: MONTELUKAST SOD 10 MG TAB PO SCH (20:41)
[2016-10-31] MEDS: SIMVASTATIN 10 MG TAB PO SCH (20:41)
[2016-10-31] MEDS: ASPIRIN 81 MG ECTAB PO SCH (20:41)
[2016-11-01] VITALS (12 sets, daily range): BP systolic 147–184; BP diastolic 69–97; PULSE 83–122; TEMP 36.6–37; O2SAT 89–97
[2016-11-01] MEDS: LEVALBUTEROL 1.25MG/0.5ML NEB INH SCH ×6 (03:18→23:13)
[2016-11-01] MEDS: IPRATROPIUM BROMIDE NEB SOLN 0.02% 2.5 ML VIAL INH SCH ×6 (03:18→23:13)
[2016-11-01] MEDS ORDERED: ALENDRONATE SODIUM 70 MG TAB PO SCH (06:00)
[2016-11-01] MEDS: MULTIVITAMIN TAB PO SCH (07:25)
[2016-11-01] MEDS: ENOXAPARIN 40 MG/0.4 ML SYR SC SCH (07:25)
[2016-11-01] MEDS: NYSTATIN SUSP 500,000 U/5 ML UDC PO SCH ×4 (07:25→21:09)
[2016-11-01] MEDS: LISINOPRIL 40 MG TAB PO SCH (07:26)
[2016-11-01] MEDS: TIOTROPIUM BROMIDE 5 PUFF/90 MCG INH INH SCH (07:26)
[2016-11-01] MEDS: VERAPAMIL HCL 180 MG TABCR PO SCH (07:26)
[2016-11-01] MEDS: METHYLPREDNISOLONE IV 40 MG in SYRINGE 0 ML IV SCH ×2 (07:26→15:39)
[2016-11-01] MEDS: CALCIUM 600MG + VIT D 400 IU TAB PO SCH (07:27)
[2016-11-01] MEDS: BUDESONIDE/FORMOTEROL FUMARATE 160/4.5 60 PUFFS/INHALER INH SCH ×2 (07:27→21:10)
--- NOTE | 2016-11-01 11:50 | Progress Note ---
Medicine Progress Note Date & Time of Visit: Nov 01, 2016 at 11:47. Subjective patient seen resting comfortably states she feels improved compared to yesterday less cough, still has mild wheeze no chest pain sore throat improving denies other symptoms Objective Last 8 Hrs Date Time Temp Pulse Resp B/P Pulse Ox O2 Delivery O2 Flow Rate FiO2 11/01/16 11:44 36.9 93 18 147/69 91 11/01/16 11:05 90 18 94 Nasal Cannula 2.0 11/01/16 08:15 Nasal Cannula 2.0 11/01/16 07:15 36.6 99 18 158/86 92 2.0 11/01/16 07:04 83 18 94 Nasal Cannula 2.0 11/01/16 04:00 Nasal Cannula 2.0 Physical Exam: General- oriented x 3, not in distress, speaks in sentences with very mild effort Head- atraumatic Eyes- anicteric ENT- (+) oral thrush Neck- no JVD Lungs- scattered mild expiratory wheeze bilaterally - improved good air entry Heart- normal rate, regular rhythm; no murmurs Abdomen- normal bowel sounds, soft, nontender Extremities- no pretibial edema, no calf tenderness; peripheral pulses intact Neuro- alert, oriented x 3;no gross deficits Skin- warm & dry Assessment & Plan ACUTE HYPOXIC RESPIRATORY FAILURE SECONDARY TO COPD EXACERBATION ACUTE BRONCHITIS Failed outpatient treatment with amoxicillin and PO prednisone x 7 days (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 However, if she were conscious and developed worsening respiratory status she states it would be acceptable to intubate. DISPOSITION Lives with daughter Follows with Dr. Colvin for primary care anticipate discharge home when medically stable Current Inpatient Medications: Current Inpatient Medications Medications (Trade) Dose Ordered Sig/Jax Route Start Time Stop Time Status Last Admin Dose Admin Lactated Ringer's (Lr 1000ml) 500 ml @ 15 mls/hr Q24H IV 11/02/16 06:00 11/02/16 18:00 Enoxaparin Sodium (Lovenox Inj) 40 mg DAILY@0900 SC 10/31/16 09:00 11/30/16 08:59 11/01/16 07:25 40 MG Acetaminophen (Tylenol Tab) 650 mg Q4H PRN PO 10/30/16 17:30 11/29/16 17:29 Ondansetron HCl 4 mg 4 mg Q6H PRN IV 10/30/16 17:30 11/29/16 17:29 Methylprednisolone Sodium Succinate 40 mg/Syringe 0.64 ml @ 1.5 mls/min Q8H IV 10/31/16 00:00 11/30/16 00:00 11/01/16 07:26 1.5 MLS/MIN Levofloxacin/Prmx (Levaquin / D5W/ Premixed D5W) 100 ml @ 100 mls/hr Q24H IV 10/31/16 16:00 11/06/16 15:59 10/31/16 16:08 100 MLS/HR Alendronate Sodium (Fosamax Tab) 70 mg Leroy@0600 PO 11/01/16 06:00 12/01/16 05:59 11/01/16 07:26 70 MG Aspirin (Ecotrin Tab) 81 mg HS PO 10/30/16 21:00 11/29/16 20:59 10/31/16 20:41 81 MG Budesonide/ Formoterol Fumarate (Symbicort 160/ 4.5 Inh) 2 puffs BID INH 10/30/16 21:00 11/29/16 20:59 11/01/16 07:27 2 PUFFS Docusate Sodium (coLACE CAP) 100 mg DAILY PRN PO 10/30/16 17:30 11/29/16 17:29 Lisinopril (Zestril Tab) 40 mg DAILY PO 10/31/16 09:00 11/30/16 08:59 11/01/16 07:26 40 MG Montelukast Sodium (Singulair Tab) 10 mg QPM PO 10/30/16 21:00 11/29/16 20:59 10/31/16 20:41 10 MG Multivitamins (Multivitamin Tab) 1 tab DAILY PO 10/31/16 09:00 11/30/16 08:59 11/01/16 07:25 1 TAB Simvastatin (Zocor Tab) 10 mg QPM PO 10/30/16 21:00 11/29/16 20:59 10/31/16 20:41 10 MG Tiotropium [place] (Spiriva Handihaler Inhaler) 30 puff DAILY INH 10/31/16 09:00 11/30/16 08:59 11/01/16 07:26 5 PUFF Calcium/Vitamin D (Caltrate Plus Tab) 2 tab DAILY PO 10/31/16 09:00 11/30/16 08:59 11/01/16 07:27 2 TAB Verapamil HCl (Calan-Sr Tab) 180 mg QAM PO 10/31/16 09:00 11/30/16 08:59 11/01/16 07:26 180 MG Ipratropium [place] (Atrovent 0.02% 0.5MG/2.5ML Neb) 0.5 mg Q4R INH 10/31/16 20:00 11/30/16 19:59 11/01/16 11:05 0.5 MG Levalbuterol (Xopenex 1.25MG/ 0.5ML Neb) 1.25 mg Q4R INH 10/31/16 20:00 11/30/16 19:59 11/01/16 11:05 1.25 MG Nystatin (Mycostatin Susp) 4 ml QID PO 10/31/16 18:00 11/07/16 17:59 11/01/16 07:25 4 ML
[2016-11-01] MEDS: LEVOFLOXACIN / D5W 500 MG in PREMIXED IN D5W 100 ML IV SCH (15:39)
[2016-11-01] MEDS: SIMVASTATIN 10 MG TAB PO SCH (21:09)
[2016-11-01] MEDS: ASPIRIN 81 MG ECTAB PO SCH (21:09)
[2016-11-01] MEDS: MONTELUKAST SOD 10 MG TAB PO SCH (21:09)
[2016-11-02] VITALS (14 sets, daily range): BP systolic 135–177; BP diastolic 71–89; PULSE 71–103; TEMP 36.7–36.8; O2SAT 90–97
[2016-11-02] MEDS: METHYLPREDNISOLONE IV 40 MG in SYRINGE 0 ML IV SCH ×3 (00:03→15:59)
[2016-11-02] MEDS: IPRATROPIUM BROMIDE NEB SOLN 0.02% 2.5 ML VIAL INH SCH ×5 (03:14→20:25)
[2016-11-02] MEDS: LEVALBUTEROL 1.25MG/0.5ML NEB INH SCH ×5 (03:15→20:25)
[2016-11-02] MEDS ORDERED: PROPARACAINE 0.5% OP SOLN PER DROP CHARGE OPR SCH (06:00)
[2016-11-02] MEDS ORDERED: LACTATED RINGER'S 1000ML 500 ML IV SCH (06:00)
[2016-11-02] MEDS ORDERED: PHENYLEPHRINE HCL 2.5% OP SOLN PER DROP CHARGE OPR SCH (06:01)
[2016-11-02] MEDS ORDERED: TROPICAMIDE 1% OP SOLN PER DROP CHARGE OPR SCH (06:02)
[2016-11-02 06:55] LABS: HEMATOCRIT 36.7 % (37-47); MEAN CORPUSCULAR HEMOGLOBIN 27.5 pg (25-34); MEAN CORPUSCULAR HGB CONC 31.6 g/dl (32-36); MEAN PLATELET VOLUME 10.4 fL (7.4-10.4); PLATELET COUNT 369 K/uL (130-400); RED BLOOD COUNT 4.22 M/uL (4.2-5.4); WHITE BLOOD COUNT 16.29 K/uL (4.8-10.8)
[2016-11-02] MEDS: TIOTROPIUM BROMIDE 5 PUFF/90 MCG INH INH SCH (07:48)
[2016-11-02] MEDS: BUDESONIDE/FORMOTEROL FUMARATE 160/4.5 60 PUFFS/INHALER INH SCH ×2 (07:48→20:33)
[2016-11-02] MEDS: LISINOPRIL 40 MG TAB PO SCH (07:49)
[2016-11-02] MEDS: MULTIVITAMIN TAB PO SCH (07:49)
[2016-11-02] MEDS: VERAPAMIL HCL 180 MG TABCR PO SCH (07:49)
[2016-11-02] MEDS: CALCIUM 600MG + VIT D 400 IU TAB PO SCH (07:49)
[2016-11-02] MEDS: ENOXAPARIN 40 MG/0.4 ML SYR SC SCH (07:49)
[2016-11-02] MEDS: NYSTATIN SUSP 500,000 U/5 ML UDC PO SCH ×4 (07:49→20:33)
[2016-11-02] MEDS: LEVOFLOXACIN / D5W 500 MG in PREMIXED IN D5W 100 ML IV SCH (15:59)
--- NOTE | 2016-11-02 18:10 | Progress Note ---
Medicine Progress Note Date & Time of Visit: Nov 02, 2016 at 18:09. Subjective patient seen sitting up in bed, comfortable states her breathing continues to improved less cough sore throat much better denies chest pain no other symptoms Objective Last 8 Hrs Date Time Temp Pulse Resp B/P Pulse Ox O2 Delivery O2 Flow Rate FiO2 11/02/16 16:00 95 Nasal Cannula 2.0 11/02/16 15:31 36.7 74 16 177/71 95 Nasal Cannula 2.0 11/02/16 15:24 90 18 96 Nasal Cannula 2.0 11/02/16 12:11 36.7 88 18 135/73 95 Nasal Cannula 2.0 11/02/16 12:00 Nasal Cannula 2.0 11/02/16 11:22 87 18 97 Nasal Cannula 2.0 Physical Exam: General- oriented x 3, not in distress, speaks in sentences with very mild effort, mild accessory muscle use Eyes- anicteric ENT- (+) oral thrush- improved Neck- no JVD Lungs-faint wheeze bilaterally good air entry Heart- normal rate, regular rhythm; no murmurs Abdomen- normal bowel sounds, soft, nontender Extremities- no pretibial edema, no calf tenderness Neuro- alert, oriented x 3;no gross deficits Skin- warm & dry Laboratory Results: Last 24 Hours Test 11/02/16 06:25 White Blood Count 16.29 K/uL Red Blood Count 4.22 M/uL Hemoglobin 11.6 g/dL Hematocrit 36.7 % Mean Corpuscular Volume 87.0 fL Mean Corpuscular Hemoglobin 27.5 pg Mean Corpuscular Hemoglobin Concent 31.6 g/dl RDW Standard Deviation 52.6 fL RDW Coefficient of Variation 16.4 % Platelet Count 369 K/uL Mean Platelet Volume 10.4 fL Assessment & Plan ACUTE HYPOXIC RESPIRATORY FAILURE SECONDARY TO COPD EXACERBATION ACUTE BRONCHITIS Failed outpatient treatment with amoxicillin and PO prednisone x 7 days (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 However, if she were conscious and developed worsening respiratory status she states it would be acceptable to intubate. DISPOSITION Lives with daughter Follows with Dr. Colvin for primary care anticipate discharge home when medically stable Current Inpatient Medications: Current Inpatient Medications Medications (Trade) Dose Ordered Sig/Jax Route Start Time Stop Time Status Last Admin Dose Admin Enoxaparin Sodium (Lovenox Inj) 40 mg DAILY@0900 SC 10/31/16 09:00 11/30/16 08:59 11/02/16 07:49 40 MG Acetaminophen (Tylenol Tab) 650 mg Q4H PRN PO 10/30/16 17:30 11/29/16 17:29 Ondansetron HCl 4 mg 4 mg Q6H PRN IV 10/30/16 17:30 11/29/16 17:29 Methylprednisolone Sodium Succinate 40 mg/Syringe 0.64 ml @ 1.5 mls/min Q8H IV 10/31/16 00:00 11/30/16 00:00 11/02/16 15:59 1.5 MLS/MIN Levofloxacin/Prmx (Levaquin / D5W/ Premixed D5W) 100 ml @ 100 mls/hr Q24H IV 10/31/16 16:00 11/06/16 15:59 11/02/16 15:59 100 MLS/HR Alendronate Sodium (Fosamax Tab) 70 mg Leroy@0600 PO 11/01/16 06:00 12/01/16 05:59 11/01/16 07:26 70 MG Aspirin (Ecotrin Tab) 81 mg HS PO 10/30/16 21:00 11/29/16 20:59 11/01/16 21:09 81 MG Budesonide/ Formoterol Fumarate (Symbicort 160/ 4.5 Inh) 2 puffs BID INH 10/30/16 21:00 11/29/16 20:59 11/02/16 07:48 2 PUFFS Docusate Sodium (coLACE CAP) 100 mg DAILY PRN PO 10/30/16 17:30 11/29/16 17:29 Lisinopril (Zestril Tab) 40 mg DAILY PO 10/31/16 09:00 11/30/16 08:59 11/02/16 07:49 40 MG Montelukast Sodium (Singulair Tab) 10 mg QPM PO 10/30/16 21:00 11/29/16 20:59 11/01/16 21:09 10 MG Multivitamins (Multivitamin Tab) 1 tab DAILY PO 10/31/16 09:00 11/30/16 08:59 11/02/16 07:49 1 TAB Simvastatin (Zocor Tab) 10 mg QPM PO 10/30/16 21:00 11/29/16 20:59 11/01/16 21:09 10 MG Tiotropium [place] (Spiriva Handihaler Inhaler) 30 puff DAILY INH 10/31/16 09:00 11/30/16 08:59 11/02/16 07:48 5 PUFF Calcium/Vitamin D (Caltrate Plus Tab) 2 tab DAILY PO 10/31/16 09:00 11/30/16 08:59 11/02/16 07:49 2 TAB Verapamil HCl (Calan-Sr Tab) 180 mg QAM PO 10/31/16 09:00 11/30/16 08:59 11/02/16 07:49 180 MG Ipratropium [place] (Atrovent 0.02% 0.5MG/2.5ML Neb) 0.5 mg Q4R INH 10/31/16 20:00 11/30/16 19:59 11/02/16 15:24 0.5 MG Levalbuterol (Xopenex 1.25MG/ 0.5ML Neb) 1.25 mg Q4R INH 10/31/16 20:00 11/30/16 19:59 11/02/16 15:24 1.25 MG Nystatin (Mycostatin Susp) 4 ml QID PO 10/31/16 18:00 11/07/16 17:59 11/02/16 15:59 4 ML
[2016-11-02] MEDS: SIMVASTATIN 10 MG TAB PO SCH (20:33)
[2016-11-02] MEDS: ASPIRIN 81 MG ECTAB PO SCH (20:33)
[2016-11-02] MEDS: MONTELUKAST SOD 10 MG TAB PO SCH (20:33)
[2016-11-03] VITALS (10 sets, daily range): BP systolic 131–192; BP diastolic 77–94; PULSE 84–113; TEMP 36.7–37.1; O2SAT 90–98
[2016-11-03] MEDS: VERAPAMIL HCL 180 MG TABCR PO SCH (00:59)
[2016-11-03] MEDS: LEVALBUTEROL 1.25MG/0.5ML NEB INH SCH ×3 (02:15→14:22)
[2016-11-03] MEDS: IPRATROPIUM BROMIDE NEB SOLN 0.02% 2.5 ML VIAL INH SCH ×3 (02:15→14:22)
[2016-11-03] MEDS ORDERED: METHYLPREDNISOLONE IV 40 MG in SYRINGE 0 ML IV SCH (04:00)
[2016-11-03] MEDS: BUDESONIDE/FORMOTEROL FUMARATE 160/4.5 60 PUFFS/INHALER INH SCH (08:02)
[2016-11-03] MEDS: ENOXAPARIN 40 MG/0.4 ML SYR SC SCH (08:03)
[2016-11-03] MEDS: TIOTROPIUM BROMIDE 5 PUFF/90 MCG INH INH SCH (08:03)
[2016-11-03] MEDS: CALCIUM 600MG + VIT D 400 IU TAB PO SCH (08:03)
[2016-11-03] MEDS: NYSTATIN SUSP 500,000 U/5 ML UDC PO SCH ×2 (08:03→12:19)
[2016-11-03] MEDS: MULTIVITAMIN TAB PO SCH (08:03)
[2016-11-03] MEDS: LISINOPRIL 40 MG TAB PO SCH (08:03)
--- NOTE | 2016-11-03 12:40 | Progress Note ---
Medicine Progress Note Date & Time of Visit: Nov 03, 2016 at 12:32. Subjective patient states she feels better overall breathing has improved, back to baseline cough continues to improved no chest pain denies other symptoms states she is ready and would like to be discharged today Objective Last 8 Hrs Date Time Temp Pulse Resp B/P Pulse Ox O2 Delivery O2 Flow Rate FiO2 11/03/16 11:37 37.1 90 18 152/85 98 Nasal Cannula 2.0 11/03/16 07:45 Nasal Cannula 2.0 11/03/16 07:30 36.9 84 20 131/77 94 Nasal Cannula 2.0 11/03/16 07:14 92 18 96 Nasal Cannula 2.0 Physical Exam: General- oriented x 3, not in distress, speaks in sentences with no effort, no acc muscle use ENT- (+) oral thrush- improved Neck- no JVD Lungs- very faint wheeze bilaterally ,good air entry Heart- normal rate, regular rhythm; no murmurs Abdomen- normal bowel sounds, soft, nontender Extremities- no pretibial edema, no calf tenderness Neuro- alert, oriented x 3;no gross deficits Skin- warm & dry Assessment & Plan ACUTE HYPOXIC RESPIRATORY FAILURE SECONDARY TO COPD EXACERBATION ACUTE BRONCHITIS Failed outpatient treatment with amoxicillin and PO prednisone x 7 days (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 kit from leak detector)H Hypoxic to 79% on RA in ER; now saturating 95% on 2 liters NC; only uses 2 liters PRN at home - cxr : no pneumonia negative for flu - improved gradually Nebs q4h transitioned to q6h given Solumedrol IV, tapered down received Levaquin 500mg po daily x 4 days Nystatin given for oral thrush, improved Continued Symbicort, Spiriva, and Singulair - on 2 liters NC - discharge plan: Levaquin x 3 more days Prednisone tapering course Albuterol Q6h and q4h PRN continue 2 liters o2 by NC for now until PCP follow up - ff up with PCP in 3-5 days HYPERTENSION Continue lisinopril and verapamil ER PRN Clonidine PULMONARY NODULES Continue outpatient follow up - CXR: FINDINGS: There may be underlying emphysema. No pneumothorax or pleural effusion is present. Bilateral healed rib fractures are noted. Lower lung interstitial thickening is unchanged. There is no evidence of pulmonary edema. There is no consolidation. Cardiomediastinal silhouette is stable. A lobular density along left hemidiaphragm is unchanged since earlier exams and may reflect a Bochdalek hernia. IMPRESSION: 1. No acute findings. No change in appearance of the chest. 2. Suspected emphysema. DYSLIPIDEMIA Continue statin DISPOSITION Lives with daughter d/c home today ff up with PCP 3-5 days Current Inpatient Medications: Current Inpatient Medications Medications (Trade) Dose Ordered Sig/Jax Route Start Time Stop Time Status Last Admin Dose Admin Enoxaparin Sodium (Lovenox Inj) 40 mg DAILY@0900 SC 10/31/16 09:00 11/30/16 08:59 11/03/16 08:03 40 MG Acetaminophen (Tylenol Tab) 650 mg Q4H PRN PO 10/30/16 17:30 11/29/16 17:29 Ondansetron HCl 4 mg 4 mg Q6H PRN IV 10/30/16 17:30 11/29/16 17:29 Levofloxacin/Prmx (Levaquin / D5W/ Premixed D5W) 100 ml @ 100 mls/hr Q24H IV 10/31/16 16:00 11/06/16 15:59 11/02/16 15:59 100 MLS/HR Alendronate Sodium (Fosamax Tab) 70 mg Leroy@0600 PO 11/01/16 06:00 12/01/16 05:59 11/01/16 07:26 70 MG Aspirin (Ecotrin Tab) 81 mg HS PO 10/30/16 21:00 11/29/16 20:59 11/02/16 20:33 81 MG Budesonide/ Formoterol Fumarate (Symbicort 160/ 4.5 Inh) 2 puffs BID INH 10/30/16 21:00 11/29/16 20:59 11/03/16 08:02 2 PUFFS Docusate Sodium (coLACE CAP) 100 mg DAILY PRN PO 10/30/16 17:30 11/29/16 17:29 Lisinopril (Zestril Tab) 40 mg DAILY PO 10/31/16 09:00 11/30/16 08:59 11/03/16 08:03 40 MG Montelukast Sodium (Singulair Tab) 10 mg QPM PO 10/30/16 21:00 11/29/16 20:59 11/02/16 20:33 10 MG Multivitamins (Multivitamin Tab) 1 tab DAILY PO 10/31/16 09:00 11/30/16 08:59 11/03/16 08:03 1 TAB Simvastatin (Zocor Tab) 10 mg QPM PO 10/30/16 21:00 11/29/16 20:59 11/02/16 20:33 10 MG Tiotropium [place] (Spiriva Handihaler Inhaler) 30 puff DAILY INH 10/31/16 09:00 11/30/16 08:59 11/03/16 08:03 5 PUFF Calcium/Vitamin D (Caltrate Plus Tab) 2 tab DAILY PO 10/31/16 09:00 11/30/16 08:59 11/03/16 08:03 2 TAB Verapamil HCl (Calan-Sr Tab) 180 mg QAM PO 10/31/16 09:00 11/30/16 08:59 11/03/16 00:59 180 MG Nystatin 4 ml 4 ml QID PO 10/31/16 18:00 11/07/16 17:59 11/03/16 12:19 4 ML Methylprednisolone Sodium Succinate/ Syringe (Solu-Medrol IV/ Syringe) 0.64 ml @ 1.5 mls/min Q12H IV 11/03/16 04:00 12/03/16 03:59 11/03/16 04:14 1.5 MLS/MIN Ipratropium [place] (Atrovent 0.02% 0.5MG/2.5ML Neb) 0.5 mg Q6R INH 11/02/16 21:00 12/02/16 20:59 11/03/16 07:14 0.5 MG Levalbuterol (Xopenex 1.25MG/ 0.5ML Neb) 1.25 mg Q6R INH 11/02/16 21:00 12/02/16 20:59 11/03/16 07:14 1.25 MG
[2016-11-03] MEDS ORDERED: ALBINS/ INH (12:47)
[2016-11-03] MEDS ORDERED: LEVO1TAB34 PO (12:47)
[2016-11-03] MEDS ORDERED: PRED10TA PO (12:47)
[2016-11-03] MEDS ORDERED: NYSS5 PO (12:47)
[2016-11-03] MEDS ORDERED: OXGN (12:47)
--- NOTE | 2016-11-03 12:53 | Discharge Instructions ---
Discharge Instructions Date of Service Nov 03, 2016. Admission Reason for Admission: Copd Exacerbation, Hypoxia Discharge Discharge Diagnosis / Problem: COPD EXACERBATION, ACUTE BRONCHITIS Discharge Goals Goal(s): Diagnostic testing, Therapeutic intervention Activity Recommendations Activity Limitations: as noted below (NO HEAVY EXERTION UNTIL RE-EVALUATED BY PRIMARY CARE PHYSICIAN) . Instructions / Follow-Up Instructions / Follow-Up PLEASE REVIEW YOUR NEW MEDICATION LIST AND FOLLOW INSTRUCTIONS CAREFULLY. CALL PRIMARY CARE PHYSICIAN OR RETURN TO ER IMMEDIATELY IF WITH WORSENING OF SYMPTOMS. FOLLOW UP WITH DR. CASTELLANOS ON Wednesday11/06/16 AT 2:10 PM. Current Hospital Diet Patient's current hospital diet: AHA Diet (Heart Healthy) Discharge Diet Recommended Diet: AHA Diet (Heart Healthy) Pending Studies Studies pending at discharge: no Medical Emergencies . Who to Call and When: Medical Emergencies: If at any time you feel your situation is an emergency, please call 911 immediately. . Non-Emergent Contact Non-Emergency issues call your: Primary Care Provider Call Non-Emergent contact if: you have a fever, you have any medication questions SYMPTOMS ARE NOT IMPROVING, OR WORSENING . . "Provider Documentation" section prepared by Will Dawn. VTE Core Measure Inpt VTE Proph given/why not?: Enoxaparin (Lovenox)SQ
--- NOTE | 2016-11-03 13:00 | Discharge Summary ---
Discharge Summary Date of Service Nov 03, 2016. Discharge Summary Admission Date: Oct 30, 2016 at 17:19 Discharge Date: Nov 03, 2016 Discharge Disposition: Home Principal Diagnosis: ACUTE HYPOXIC RESPIRATORY FAILURE SECONDARY TO COPD EXACERBATION ACUTE BRONCHITIS Secondary Diagnoses/Problems: PLEASE REFER TO HOSPITAL COURSE BELOW. Pending Studies/Follow-Up: PLEASE REFER TO HOSPITAL COURSE BELOW. Medication Reconciliation New Medications: Levofloxacin (Levaquin) 500 Mg Tab 1 TAB PO DAILY for 3 Days, #3 TAB 0 Refills Prednisone Tab (Prednisone) 10 Mg Tab 10 MG PO UD, #21 TAB take 4 tabs po daily x 2 days, then take 3 tabs po daily x 2 days, then take 2 tabs po daily x 2 days, then take 1 tab po daily x 2 days, then take 1/2 tab po daily x 2 days, then STOP Nystatin (Nystatin) 5 Ml Susp 4 ML PO QID for 3 Days, #48 ML 0 Refills Changed Medications: Albuterol Sulf (Proventil 0.083% 2.5MG/3ML) 2.5 Mg/3 Ml Nebu 2.5 MG INH Q6H for 7 Days, EA (Changed from: Q4H; Removed Reason) may use q4h as needed for shortness of breath or wheezing Oxygen (Oxygen) Gas 2 LITER NA continuous for 7 Days (Changed from: PRN) Continued Medications: Albuterol Hfa (Ventolin Hfa) 200 Puffs/70746 Mcg Aers 2 PUFFS INH QID PRN for Shortness of Breath Alendronate Sodium (Fosamax) 70 Mg Tab 70 MG PO WK, TAB TAKE ON SUNDAYS Aspirin (Aspirin) 81 Mg Tab 81 MG PO HS Budesonide/Formoterol Fumarate (Symbicort 160/4.5 Inhaler) 120 Puffs/ Aero 2 PUFFS INH BID, #10.6 GM 3 Refills Calcium Carbonate-Vitamin D (Calcium 600 + D) 1 Tab Tab 2 TAB PO DAILY Docusate Sodium (Colace) 100 Mg Cap 100 MG PO DAILY PRN for Constipation for 15 Days, #15 CAP Furosemide (Lasix) 20 Mg Tab 20 MG PO DAILY PRN for edema, TAB Ibuprofen (Ibuprofen) 200 Mg Cap 200 MG PO Q4 PRN for Pain Lisinopril (Lisinopril) 40 Mg Tab 40 MG PO DAILY Meloxicam (Mobic) 15 Mg Tab 1 TAB PO DAILY PRN for Pain for 30 Days, #30 TAB 1 Refill Montelukast Sodium (Singulair) 10 Mg Tab 10 MG PO DAILY, TAB Multiple Vitamin (Multivitamin) 1 Tab Tab 1 TAB PO DAILY, TAB Multiple Vitamins W/ Minerals (Ocuvite Adult 50+) 1 Cap Cap Simvastatin (Simvastatin) 10 Mg Tab 10 MG PO QPM, #30 Tiotropium Carson (Spiriva Handihaler) 30 Puff/540 Mcg Aerp 1 CAP INH DAILY, INHALER Verapamil (Verelan Pm) 200 Mg Ercap 200 MG PO QAM, CAP Discontinued Medications: Amoxicillin (Amoxicillin) 875 Mg Tab 875 MG INH BID Prednisone (Prednisone) 20 Mg Tab MG PO UD 20 mg tabs. Take 2 tabs (40 mg) by mouth daily for 5 days, then 1 tab (20 mg) by mouth daily for 5 days. Take with food. As needed rescue kit. Admission Information HPI (per Admitting provider): This is a 75 y/o female with PMH of COPD, asthma, on chronic oxygen 2 liters PRN , HTN, dyslipidemia, and other problems listed below who presents to the ED with shortness of breath. Patient states she became ill with a "cold" with nasal congestion and cough productive of green sputum 8 days ago. She reports associated increase in baseline shortness of breath. Typically she is only dyspneic on exertion if she ambulates quickly, but today she was SOB at rest and her daughter states she was turning rogers in color. Patient has been taking amoxicillin and prednisone rescue kit for 7 days without improvement. She is using her rescue inhaler/ neb more than usual, at least every 4 hours. She is also using her oxygen 2 liters PRN more than usual. In the ER she was hypoxic to 79% on RA and is now saturating in mid 90s on 2 liters NC. She was treated with 2 neb treatments, IV steroids, and Levaquin in ER with partial improvement. She has not been eating as well. She has ongoing foot cramps and states she had a circulation test for that yesterday. She denies fevers, chills , sinus pressure, sore throat, chest pain, N/V/D, urinary changes, calf pain, edema. She lives with her daughter who recently had bronchitis. No recent hospitalization or travel. Physical Exam (per Admitting): General Appearance: + pertinent finding (pleasant alert 75 year old female, sitting up in bed, mildly increased work of breathing, daughter and son-in-law at bedside) Head: normocephalic, atraumatic Eyes: normal inspection, PERRL, EOMI ENT: hearing grossly normal, TMs normal, pharynx normal, + pertinent finding (no sinus tenderness) Neck: supple, trachea midline Respiratory/Chest: + decreased breath sounds, + wheezing (moderate expiratory wheezing), + pertinent finding (mildy increased work of breathing with mild accessory muscle use. able to speak in sentences. resp rate 18. 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 Hypoxic to 79% on RA in ER; now saturating 95% on 2 liters NC; only uses 2 liters PRN at home - cxr : no pneumonia negative for flu - improved gradually Nebs q4h transitioned to q6h given Solumedrol IV, tapered down received Levaquin 500mg po daily x 4 days Nystatin given for oral thrush, improved Continued Symbicort, Spiriva, and Singulair - on 2 liters NC - discharge plan: Levaquin x 3 more days Prednisone tapering course Albuterol Q6h and q4h PRN continue 2 liters o2 by NC for now until PCP follow up - ff up with PCP in 3-5 days HYPERTENSION Continue lisinopril and verapamil ER PRN Clonidine PULMONARY NODULES Continue outpatient follow up - CXR: FINDINGS: There may be underlying emphysema. No pneumothorax or pleural effusion is present. Bilateral healed rib fractures are noted. Lower lung interstitial thickening is unchanged. There is no evidence of pulmonary edema. There is no consolidation. Cardiomediastinal silhouette is stable. A lobular density along left hemidiaphragm is unchanged since earlier exams and may reflect a Bochdalek hernia. IMPRESSION: 1. No acute findings. No change in appearance of the chest. 2. Suspected emphysema. DYSLIPIDEMIA Continue statin DISPOSITION d/c home ff up with PCP 3-5 days Total time spent on discharge = 35 MINUTES This includes examination of the patient, discharge planning, medication reconciliation, and communication with other providers. Discharge Instructions Discharge Instructions Date of Service Nov 03, 2016. Admission Reason for Admission: Copd Exacerbation, Hypoxia Discharge Discharge Diagnosis / Problem: COPD EXACERBATION, ACUTE BRONCHITIS Discharge Goals Goal(s): Diagnostic testing, Therapeutic intervention Activity Recommendations Activity Limitations: as noted below (NO HEAVY EXERTION UNTIL RE-EVALUATED BY PRIMARY CARE PHYSICIAN) . Instructions / Follow-Up Instructions / Follow-Up PLEASE REVIEW YOUR NEW MEDICATION LIST AND FOLLOW INSTRUCTIONS CAREFULLY. CALL PRIMARY CARE PHYSICIAN OR RETURN TO ER IMMEDIATELY IF WITH WORSENING OF SYMPTOMS. FOLLOW UP WITH DR. CASTELLANOS ON Wednesday11/06/16 AT 2:10 PM. Current Hospital Diet Patient's current hospital diet: AHA Diet (Heart Healthy) Discharge Diet Recommended Diet: AHA Diet (Heart Healthy) Pending Studies Studies pending at discharge: no Medical Emergencies . Who to Call and When: Medical Emergencies: If at any time you feel your situation is an emergency, please call 911 immediately. . Non-Emergent Contact Non-Emergency issues call your: Primary Care Provider Call Non-Emergent contact if: you have a fever, you have any medication questions SYMPTOMS ARE NOT IMPROVING, OR WORSENING . . "Provider Documentation" section prepared by Will Dawn. VTE Core Measure Inpt VTE Proph given/why not?: Enoxaparin (Lovenox)SQ
== END 2016-11-03 14:30 | disposition home or self-care (01) | DRG 190 ==
LOC: ENRESERVDT → ENRESERVTM → C.EDB 14:12 → C.MED 17:19
PROVIDERS: ADMIT Internal Medicine; ATTEND Internal Medicine
DX: J44.0 Chronic obstructive pulmonary disease with (acute) lower respiratory infection (principal); J96.01 Acute respiratory failure with hypoxia; B37.0 Candidal stomatitis; J44.1 Chronic obstructive pulmonary disease with (acute) exacerbation; J20.9 Acute bronchitis, unspecified; E78.5 Hyperlipidemia, unspecified; M81.0 Age-related osteoporosis without current pathological fracture; Z87.891 Personal history of nicotine dependence; Z79.82 Long term (current) use of aspirin; I10 Essential (primary) hypertension; R91.8 Other nonspecific abnormal finding of lung field; Z66 Do not resuscitate; Z99.81 Dependence on supplemental oxygen